=== PATIENT | male | born 1945 | race African-American/Black ===

== ENCOUNTER 2016-06-26 07:30 | Inpatient (IN) | payer MEDICARE ==
[~2016-06-26] VITALS: Ht 175.3 cm; Wt 89.4 kg
[~2016-06-26 07:30] MED LIST: AMLO10TA PO; CHLO25TA PO; K-TA1TAB PO; LOSA100T36 PO; SPIR25TA2 PO
[2016-07-30] MEDS ORDERED: ZOLO100T PO (10:32)
[2016-07-30] MEDS ORDERED: ASPI1TAB24 PO (10:32)
[2016-07-30] MEDS ORDERED: MINO10TAB PO (10:32)
[2016-07-30] MEDS ORDERED: METF500T PO (10:36)
[2016-07-30] MEDS ORDERED: FLOM5CAP PO (10:43)
[2016-08-07] MEDS ORDERED: fentaNYL 250 MCG/5 ML INJECTION (J3010) As Ordered ONE (09:20)
[2016-08-07] MEDS ORDERED: ROCURONIUM BROMIDE 50 MG/5 ML VIAL As Ordered ONE (09:20)
[2016-08-07] MEDS ORDERED: LIDOCAINE 2% INJ 100 MG/5 ML SDV (FOR ANES.) As Ordered ONE (09:20)
[2016-08-07] MEDS ORDERED: PROPOFOL 200 MG/20 ML VIAL As Ordered ONE (09:20)
[2016-08-07] MEDS ORDERED: MIDAZOLAM INJ 2 MG/2 ML VIAL (J2250) As Ordered ONE (09:20)
[2016-08-07] MEDS ORDERED: LR 1,000 ML IV SCH ×2 (10:00→16:30)
[2016-08-07] MEDS ORDERED: METHYLENE BLUE 1% 10 ML VIAL (Q9968) As Ordered ONE (11:31)
[2016-08-07] MEDS ORDERED: fentaNYL 100 MCG/2 ML INJECTION (J3010) IV PRN (16:30)
[2016-08-07] MEDS ORDERED: MORPHINE 2 MG/ML 1ML SYRINGE IV PRN (16:30)
[2016-08-07] MEDS ORDERED: MORPHINE 4 MG/ML 1ML SYRINGE IV PRN (16:30)
[2016-08-07] MEDS ORDERED: LABETALOL HCL 100 MG/20 ML VIAL IV SCH (16:30)
[2016-08-07] MEDS ORDERED: ONDANSETRON 4MG/2ML VIAL (J2405) IV PRN ×2 (16:30)
[2016-08-07 16:40] LABS: CALCIUM LEVEL 9.2 MG/DL (8.8-10.2); CREATININE FOR GFR 1.81 MG/DL (0.70-1.30); GLOMERULAR FILTRATION RATE 48.3 (>49)
[2016-08-07 17:13] LABS: MEAN CORPUSCULAR HEMOGLOBIN 29.2 pg (27.0-33.0); MEAN CORPUSCULAR HGB CONC 32.7 g/dl (32.0-36.5); MEAN CORPUSCULAR VOLUME 89.4 fl (80.0-96.0); RED CELL DISTRIBUTION WIDTH 12.8 % (11.5-14.5); WHITE BLOOD COUNT 9.6 K/mm3 (4.0-10.0)
[2016-08-07 17:45] VITALS: BP 153/77
[2016-08-07] MEDS: KCL 20MEQ IN D5/0.45NS 1000ML 1,000 ML IV SCH (18:00)
[2016-08-07] MEDS: PANTOPRAZOLE 40MG INJ (PROTONIX) (C9113) IV SCH (18:01)
[2016-08-07] MEDS: CIPROFLOXACIN 500 MG TAB PO SCH (18:05)
[2016-08-07] MEDS: ASPIRIN 81 MG CHEW TABLET PO SCH (18:07)
[2016-08-07 18:15] VITALS: BP 152/77
[2016-08-07] MEDS ORDERED: CHLO125TA PO (18:57)
[2016-08-07] MEDS: oxyCODONE 5MG TAB PO PRN (19:00)
[2016-08-07] MEDS ORDERED: SLF 3 ML SYR IV PRN (19:15)
[2016-08-07 19:56] VITALS: BP 159/79
[2016-08-07] MEDS ORDERED: LOSARTAN 50 MG TAB PO SCH (21:00)
[2016-08-08] MEDS: SLF 3 ML SYR IV SCH ×3 (00:36→13:47)
[2016-08-08] MEDS: ACETAMINOPHEN 650MG ER TAB (TYLENOL ARTHRITIS) PO SCH ×3 (00:36→13:47)
[2016-08-08 00:40] VITALS: BP 156/79
[2016-08-08 05:01] VITALS: BP 148/72
[2016-08-08] MEDS: CIPROFLOXACIN 500 MG TAB PO SCH ×2 (05:08→17:03)
[2016-08-08] MEDS: oxyCODONE 5MG TAB PO PRN ×2 (05:09→17:04)
[2016-08-08] MEDS: KCL 20MEQ IN D5/0.45NS 1000ML 1,000 ML IV SCH ×2 (05:09→12:00)
[2016-08-08 05:57] LABS: MEAN CORPUSCULAR HEMOGLOBIN 28.6 pg (27.0-33.0); MEAN CORPUSCULAR HGB CONC 31.9 g/dl (32.0-36.5); MEAN CORPUSCULAR VOLUME 89.6 fl (80.0-96.0); WHITE BLOOD COUNT 11.2 K/mm3 (4.0-10.0)
[2016-08-08 06:08] LABS: CALCIUM LEVEL 8.5 MG/DL (8.8-10.2); CREATININE FOR GFR 1.55 MG/DL (0.70-1.30); GLOMERULAR FILTRATION RATE 57.8 (>49); POTASSIUM SERUM 4.2 MEQ/L (3.5-5.1)
--- NOTE | 2016-08-08 06:53 | RO ---
DATE OF PROCEDURE: 08/07/2016 PREOPERATIVE DIAGNOSIS: Prostate cancer. POSTOPERATIVE DIAGNOSIS: Prostate cancer. SURGERY PERFORMED: Robotic-assisted radical prostatectomy. SURGEON: Dr. Marquez Carnes CURTAIN CLEANER: Maude Fiugeroa ANESTHESIA: General. ESTIMATED BLOOD LOSS: 150 mL. COMPLICATIONS: None. HISTORY OF PRESENT ILLNESS: 70-year-old male patient with acute urinary retention with a PSA of 48 and a prostate biopsy reporting a [place] score of 3+3 for a clinical stage cT1c N0 M0. The patient has consented for a robotic-assisted radical prostatectomy. He has received a Lupron shot 45 mg one shot only in [place]. He came here for surgery to [facility] with us. He has consented for robotic-assisted radical prostatectomy. PROCEDURE DESCRIPTION: In a patient under general anesthesia in supine modified low lithotomy position after prepping and draping the area of concern, which included the entire genitalia and abdomen, we started by putting a Hollingsworth catheter #16 [place] Islander to drain the bladder and inflated the balloon to 10 mL. An orogastric tube was also placed to drain the gastric content. We then performed an incision in the midline for about 2 cm in length, a vertical incision, infraumbilical. Through this incision, we opened the Retzius space and introduced the balloon SpaceMaker and inflated the balloon SpaceMaker to actively dissect the Retzius space. We then introduced a 12 mm balloon trocar through this and we insufflated the Retzius space with the CO2 at a maximum pressure of 15 at high flow. With the hand held robotic camera 10 mm, we actively placed the other trocars in a fan-shaped manner - 2 metallic trocars 8 mm in diameter on the left side by each other by 8 cm and 2 on the right side one 8 mm metallic trocar in the midclavicular line and another metallic trocar 8 cm away from the midclavicular line one in the anterior axillary line, and another 8 mm metallic trocar for a third arm. On the left side, in the midclavicular line, instead of a metallic trocar, we placed a VersaStep 12 mm diameter for doctor's assistant port. We then proceeded to place the patient in steep Trendelenburg position and docked the robot. On the left arm, we used monopolar scissors. On the right arm, we used monopolar PK and also a ProGrasp. We then proceeded to actively dissect the Retzius space further on and defat the prostate by taking out the periprostatic fat. We then proceeded to score the endopelvic fascia from base to apex and cut the puboprostatic ligament. At that moment in time, we switched to needle holders and actively placed a dorsal vein complex stitch times two using a CT1 needle and #0 Vicryl. We then proceeded to actively extract the needles and then changed the needle holders for monopolar scissors and PK and cut them through the bladder neck and opened the bladder. We identified the Hollingsworth catheter, deflated the balloon, and with the third arm we put into traction the prostate by pulling on the Hollingsworth catheter anteriorly. We then dissected the posterior bladder wall and then lanced posteriorly detrusor muscle. We then landed on the vas deferens bilaterally and also seminal vesicles. We dissected the vas deferens and cut them and with the third arm we tractioned the vas deferens anteriorly to put into traction both seminal vesicles. We dissected both seminal vesicles, ligating the seminal vesicle arteries. We then proceeded to grab the seminal vesicles and vas deferens with the third arm and pulled the traction anteriorly to actively pull into traction the posterior Denonvilliers fascia. We cut the posterior Denonvilliers fascia transversely and then dissected the rectum away from the prostatic gland from base to apex. We then proceeded to control the prostatic pedicles with extra large Hem-o-loks times two on the left side and times two on the right side. We then proceeded to mobilize the prostate gland completely up to the apex. We then proceeded to cut the dorsal vein complex and then cut the urethra. The prostate gland was a very large gland with a middle lobe. We placed the prostate gland into an Endo Catch bag. We then proceeded to actively do our posterior Denonvilliers reconstruction with a running stitch of #3-0 V-Loc in a running fashion. Once we did that, we reconstructed the bladder neck by putting two lateral stitches on the right side and two lateral stitches on the left side with V-Loc. We then proceeded to do our urethrovesical anastomosis, starting with a quill stitch #2-0 double needle absorbable stitches, starting at 6 o'clock outside-in in the bladder neck and inside-out in the urethra. We ran it 360 degrees around the clock and before closing the anastomosis we passed a #20 [place] Islander Hollingsworth catheter with a 2-way inflatable balloon to 20 mL. We then tied our knots and cut the needles and took the needles out of the body of the patient. We actively then removed the third arm and placed a round J-P #15 blade drain, placing it into the pelvis. We took all the instruments out and docked the robot and took all the trocars out. We took the specimen through the midline incision in an Endo Catch bag. We secured the drain with a #3-0 nylon to the skin. We closed the rectus fascia in the midline with a #2-0 Vicryl on a UR #6 needle in a running fashion. We closed the skin with #4-0 Monocryl subcuticular stitches. We covered the skin wounds with 4 x 4's and we placed Tegaderm on top of his incision. The J-P was placed to bulb suction. The Hollingsworth catheter was placed to gravity. PLAN: The patient will pass to recovery and then to the floor. Once he is tolerating a regular diet and ambulating very well, he will be discharged home. There were no complications during surgery. Prostate and seminal vesicles were sent for permanent pathology analysis.
[2016-08-08 07:30] VITALS: BP 148/78
[2016-08-08 08:31] VITALS: BP 148/78
[2016-08-08] MEDS: ASPIRIN 81 MG CHEW TABLET PO SCH (08:31)
[2016-08-08] MEDS ORDERED: amLODIPine 10 MG TAB PO SCH (09:00)
[2016-08-08] MEDS ORDERED: SPIRONOLACTONE 25 MG TAB PO SCH (09:00)
[2016-08-08 12:00] VITALS: BP 148/70
[2016-08-08 16:00] VITALS: BP 172/79
[2016-08-08] MEDS: PANTOPRAZOLE 40MG INJ (PROTONIX) (C9113) IV SCH (17:03)
[2016-08-08] MEDS ORDERED: PERCOCET PO (17:04)
[2016-08-08] MEDS ORDERED: CIPR500T3 PO (17:04)
--- NOTE | 2016-08-08 21:34 | DSES ---
DATE OF ADMISSION: 08/07/2016 DATE OF DISCHARGE: 08/08/2016 ADMISSION DIAGNOSIS: Prostate cancer. DISCHARGE DIAGNOSIS: Prostate cancer. ADMITTING SURGEON: Dr. Marquez Carnes DISCHARGE SURGEON: Dr. Marquez Carnes HISTORY OF PRESENT ILLNESS: This is a 70-year-old male patient, -Ind[place]ian man, with a history of prostate cancer, Eduar 6, PSA of 48. The patient had a Lupron shot due to the reason that he had prostate cancer and urinary retention. After one month on a Hollingsworth catheter, he actually was able to void. The patient consented for a robotic assisted radical prostatectomy and that was carried out on 08/07/2016. After this, he was admitted to the hospital. HOSPITALIZATION COURSE: The patient did very well. By postoperative day number 1, he was tolerating a regular diet. Ambulated very well with assistance. The Hollingsworth catheter was draining clear urine. His MARCUS output was only 20 mL in the last 24 hours. For this reason, he requested to go home, and we agreed upon this. He will go home with the following indications: He will return back to all of his home medications, in addition to that, he will take Ciprofloxacin 500 mg one tablet by mouth twice a day for ten days. He will have Percocet 5/325 mg one tablet by mouth every six hours as needed for pain. He cannot carry heavy weight, lifting about 20 pounds. He has to ambulate three times a day. He should have a regular diet. He may shower, no sits baths. Hollingsworth catheter will be to gravity. He will followup in 10 days for a voiding trial. There were no complications during surgery.
[2016-08-09] MEDS ORDERED: CHLORTHALIDONE 12.5MG PER 1/2 TABLET PO SCH (09:00)
== END 2016-08-08 18:04 | disposition home or self-care (01) | DRG 708 ==
LOC: M OR 08-07 09:39 → M PCU 08-07 17:40
PROVIDERS: ADMIT Urology; ATTEND Urology
PROC: 8E0W4CZ Robotic Assisted Procedure of Trunk Region, Percutaneous Endoscopic Approach (ICD-10-PCS; 2016-08-07)
PROC: 0VT04ZZ Resection of Prostate, Percutaneous Endoscopic Approach (ICD-10-PCS; principal; 2016-08-07 11:40)
DX: C61 Malignant neoplasm of prostate (principal)

== ENCOUNTER → 2016-08-03 | Outpatient (CLI) | payer MEDICARE ==
[~2016-08-03] MED LIST changes: +ASPI1TAB24 PO; +FLOM5CAP PO; +METF500T PO; +MINO10TAB PO; +ZOLO100T PO
[2016-08-03 12:33] LABS: MEAN CORPUSCULAR HEMOGLOBIN 29.5 pg (27.0-33.0); MEAN CORPUSCULAR HGB CONC 33.7 g/dl (32.0-36.5); MEAN CORPUSCULAR VOLUME 87.5 fl (80.0-96.0); RED CELL DISTRIBUTION WIDTH 12.7 % (11.5-14.5); WHITE BLOOD COUNT 8.1 K/mm3 (4.0-10.0)
[2016-08-03 12:45] LABS: INR 1.1
[2016-08-03 12:46] LABS: CALCIUM LEVEL 9.7 MG/DL (8.8-10.2); CREATININE FOR GFR 1.83 MG/DL (0.70-1.30); GLOMERULAR FILTRATION RATE 47.7 (>49); POTASSIUM SERUM 4.7 MEQ/L (3.5-5.1)
== END ==
LOC: M LAB 11:57
PROVIDERS: ATTEND Urology
DX: Z01.818 Encounter for other preprocedural examination (principal); C61 Malignant neoplasm of prostate; Z79.82 Long term (current) use of aspirin; Z79.84 Long term (current) use of oral hypoglycemic drugs; Z79.899 Other long term (current) drug therapy

== ENCOUNTER → 2016-08-04 | Outpatient (REF) | payer MEDICARE ==
[~2016-08-04] MED LIST changes: +CHLO125TA PO; +CIPR500T3 PO; +PERCOCET PO
== END ==
LOC: M LAB REF 11:28
PROVIDERS: ATTEND Urology
DX: C61 Malignant neoplasm of prostate (principal)

== ENCOUNTER → 2016-08-10 | Outpatient (REF) | payer MEDICARE ==
[2016-08-10 12:04] LABS: CALCIUM LEVEL 9.6 MG/DL (8.8-10.2); CREATININE FOR GFR 1.92 MG/DL (0.70-1.30); GLOMERULAR FILTRATION RATE 45.2 (>49); POTASSIUM SERUM 4.2 MEQ/L (3.5-5.1)
== END ==
LOC: M SFHCPLAZ 09:15
PROVIDERS: ATTEND Family Medicine
DX: N17.9 Acute kidney failure, unspecified (principal)
CPT/HCPCS: 36415; 80048; G0463

== ENCOUNTER 2016-08-14 08:16 | Emergency (ER) | payer MEDICARE ==
[2016-08-14 09:37] LABS: BASO % 0.6 % (0.0-1.0); EOS # 0.2 K/mm3 (0.0-0.50); EOS % 3.2 % (0.0-3.0); LARGE UNSTAINED CELL # 0.2 K/mm3 (0.0-0.4); LARGE UNSTAINED CELL % 2.4 % (0.0-4.0); LYMPH # 1.7 K/mm3 (1.5-4.5); LYMPH % 23.8 % (24.0-44.0); MEAN CORPUSCULAR HEMOGLOBIN 29.5 pg (27.0-33.0); MEAN CORPUSCULAR VOLUME 86.7 fl (80.0-96.0); MONO # 0.4 K/mm3 (0.0-0.8); MONO % 5.2 % (0.0-5.0); NEUTROPHILS # 4.6 K/mm3 (1.8-7.7); NEUTROPHILS % 64.9 % (36.0-66.0); PLATELET COUNT, AUTOMATED 271 k/mm3 (150-450); RED CELL DISTRIBUTION WIDTH 13.1 % (11.5-14.5); WHITE BLOOD COUNT 7.1 K/mm3 (4.0-10.0)
[2016-08-14 10:00] LABS: CALCIUM LEVEL 8.7 MG/DL (8.8-10.2); CREATININE FOR GFR 2.2 MG/DL (0.70-1.30); GLOMERULAR FILTRATION RATE 38.6 (>49); POTASSIUM SERUM 4.6 MEQ/L (3.5-5.1)
--- NOTE | 2016-08-14 10:52 | EDDOCDS ---
Physician Documentation [facility] Name: Jed Cardenas Age: 70 yrs Sex: Male : 1945 Arrival Date: 08/14/2016 Time: 08:16 Bed I7 Private MD: Prateek Noe M. Disposition: 08/14/16 10:42 Discharged to Home/Self Care. Impression: Acute pain, not elsewhere classified - in penis, likely from catheter. - Condition is Stable. - Discharge Instructions: Pelvic Pain, Male. - Prescriptions for LIDOCAINE HYDROCHLORIDE JELLY 2% - apply to affected area 1 application by TOPICAL route 2-3 times daily As needed APPLY SMALL AMOUNT TO URETHRAL MEATUS 2-3 TIMES DAILY FOR PAIN; 30 milliliter. - Medication Reconciliation, Local Pharmacy Hours form. - Follow up: Emergency Department; When: As needed; Reason: Worsening of conditions. Follow up: Prateek Noe; When: call the clinic today, per Dr. Noe, and he will schedule an appointment for you tomorrow; Reason: Recheck today's complaints, Continuance of care. - Problem is new. - Symptoms are unchanged. - Notes: DR. NOE WILL SEE YOU IN THE CLINIC TOMORROW. PLEASE CALL THE OFFICE TODAY TO SCHEDULE THAT APPOINTMENT FOR FOLLOW UP FROM TODAY'S VISIT. DO NOT TAKE YOUR LOSARTAN UNTIL YOU SEE DR. NOE TOMORROW. START TAKING YOUR MINOXIDIL 10MG TWICE A DAY. RETURN TO THE ER WITH ANY WORSENING SYMPTOMS. YOU MAY USE THE LIDOCAINE JELLY DIRECTED, APPLIED TO THE URETHRAL MEATUS (OPENING OF THE PENIS WITH THE CATHETER IS INSERTED) TO HELP WITH YOUR PAIN. Historical: - Allergies: no known allergies; - Home Meds: 1. minoxidil 10 mg Oral tab 1 tab once daily 2. spironolactone 50 mg Oral tab 1 tab once daily 3. Flomax 0.4 mg Oral cp24 1 cap once daily 4. nifedipine 30 mg Oral TbER 1 tab once daily 5. hydrochlorothiazide 50 mg Oral tab 1 tab once daily 6. clonidine HCl 0.1 mg Oral tab 1 tab nightly 7. clopidogrel 75 mg oral tab 1 tab once daily 8. potassium chloride 20 mEq Oral TbER 1 tab once daily 9. aspirin 81 mg Oral chew 1 tab once daily 10. metformin 500 mg Oral Tb24 2 times per day 11. Zoloft 50 mg Oral tab 1 tab once daily 12. chlorthalidone 25 mg Oral tab 0.5 tab once daily 13. losartan 100 mg oral tab 1 tab once daily 14. Cipro 500 mg Oral tab 1 tab every 12 hours 15. oxycodone-acetaminophen 5-325 mg Oral tab every 6 hours as needed - PMHx: Cancer, Prostate; Hypertension; Diabetes - NIDDM: controlled; memory disturbance; Depression; - PSHx: Prostatectomy; Cardiac stents; - Social history: Smoking status: Patient states was never smoker of tobacco. No barriers to communication noted, The patient speaks fluent Hungarian. - Family history: Not pertinent. - : The pt / caregiver states he / she is on anticoagulants: Plavix. Home medication list is obtained from family members, a discharge med list. - Exposure Risk Screening:: None identified. Vital Signs: 08/14 08:51 BP 162 / 68; Pulse 85; Resp 20; Temp 98.2; Pulse Ox 93% ; Weight 87.09 kg / 192 lbs; jam1 Height 5 ft. 5 in. (165.10 cm); Pain 04/30; 08:51 Body Mass Index 31.95 (87.09 kg, 165.10 cm) jam1 MDM: 09:25 CBC with Diff Ordered. EDMS 09:25 Basic Metabolic Profile Ordered. EDMS 10:09 Financial registration complete. mm15 10:18 [facility] Payment Agreement was scanned into [employer] and attached to record. mm15 Signatures: Dispatcher [employer] EDMS Leeann Ely RN RN mcp Robie, Kathleen, RN RN kr3 Jojo Bird RN RN js13 Tony Swanson mm15 Radha Andersen PA-C PA-C dt4 The chart was reviewed and I authenticate all verbal orders and agree with the evaluation and treatment provided.Attachments: 10:18 [facility] Payment Agreement mm15 MTDD
--- NOTE | 2016-08-14 10:52 | EDDOCDS ---
Nurse's Notes [facility] Name: Jed Cardenas Age: 70 yrs Sex: Male : 1945 Arrival Date: 08/14/2016 Time: 08:16 Bed I7 Private MD: Prateek Noe M. Diagnosis: Acute pain, not elsewhere classified-in penis, likely from catheter Presentation: 08/14 08:29 Presenting complaint: Patient states: pain at site of catheter. Catheter is draining kr3 daughter reports prostate removal 1 week ago and catheter in place since. Complaining of pain since last night. Adult Sepsis Screening: The patient does not have new or worsening altered mentation. Patient's respiratory rate is less than 22. Systolic blood pressure is greater than 100. Patient has a qSOFA score of 0- Negative Sepsis Screen. Suicide/Homicide risk assessment- the patient denies having any suicidal and/or homicidal ideations and does not present with any other emotional, behavioral or mental health complaints. Status: Patient is not a servicer travel trailers or dependent. Transition of care: patient was not received from another setting of care. 08:29 Acuity: MOHSEN Level 3 kr3 08:29 Method Of Arrival: Wheelchair kr3 Triage Assessment: 08:31 General: Appears in no apparent distress, comfortable, Behavior is cooperative. Pain: kr3 Location: site of catheter. Respiratory: Respiratory effort is even, unlabored. : Hollingsworth in place to gravity drainage Urine is clear. Derm: Skin is normal. Historical: - Allergies: no known allergies; - Home Meds: 1. minoxidil 10 mg Oral tab 1 tab once daily 2. spironolactone 50 mg Oral tab 1 tab once daily 3. Flomax 0.4 mg Oral cp24 1 cap once daily 4. nifedipine 30 mg Oral TbER 1 tab once daily 5. hydrochlorothiazide 50 mg Oral tab 1 tab once daily 6. clonidine HCl 0.1 mg Oral tab 1 tab nightly 7. clopidogrel 75 mg oral tab 1 tab once daily 8. potassium chloride 20 mEq Oral TbER 1 tab once daily 9. aspirin 81 mg Oral chew 1 tab once daily 10. metformin 500 mg Oral Tb24 2 times per day 11. Zoloft 50 mg Oral tab 1 tab once daily 12. chlorthalidone 25 mg Oral tab 0.5 tab once daily 13. losartan 100 mg oral tab 1 tab once daily 14. Cipro 500 mg Oral tab 1 tab every 12 hours 15. oxycodone-acetaminophen 5-325 mg Oral tab every 6 hours as needed - PMHx: Cancer, Prostate; Hypertension; Diabetes - NIDDM: controlled; memory disturbance; Depression; - PSHx: Prostatectomy; Cardiac stents; - Social history: Smoking status: Patient states was never smoker of tobacco. No barriers to communication noted, The patient speaks fluent Cymro. - Family history: Not pertinent. - : The pt / caregiver states he / she is on anticoagulants: Plavix. Home medication list is obtained from family members, a discharge med list. - Exposure Risk Screening:: None identified. Screenin:04 Screening information is obtained from the patient. Fall risk: No risks identified. js13 Assistance ADL's: requires no assistance with activities of daily living. Abuse/DV Screen: The patient / caregiver reports he/she is: not in a situation that causes fear, pain or injury. Nutritional screening: No deficits noted. Advance Directives: There is no active DNR order. home support is adequate. Assessment: 09:18 General: Appears in no apparent distress, Behavior is appropriate for age, cooperative. js13 Pain: Location: penile area. Neurological: Level of Consciousness is awake, alert. Respiratory: Airway is patent Respiratory effort is even, unlabored, Respiratory pattern is regular, symmetrical. : Hollingsworth in place to gravity drainage Urine is clear, Genitalia appear normal. Derm: Skin is normal. 10:46 General: Appears in no apparent distress, Behavior is appropriate for age, cooperative. [facility] Pain: Location: penile area. Neurological: Level of Consciousness is awake, alert. Respiratory: Airway is patent Respiratory effort is even, unlabored, Respiratory pattern is regular, symmetrical. : Hollingsworth in place to gravity drainage Urine is clear, Genitalia appear normal. Derm: Skin is normal. 10:46 Adult Sepsis Screening: The patient does not have new or worsening altered mentation. [facility] Patient's respiratory rate is less than 22. Systolic blood pressure is greater than 100. Patient has a qSOFA score of 0- Negative Sepsis Screen. Vital Signs: 08:51 BP 162 / 68; Pulse 85; Resp 20; Temp 98.2; Pulse Ox 93% ; Weight 87.09 kg; Height 5 ft. jam1 5 in. (165.10 cm); Pain 10/10; 08:51 Body Mass Index 31.95 (87.09 kg, 165.10 cm) [facility] ED Course: 08:17 Patient visited by Tony Swanson. mm15 08:17 Patient moved to Waiting mm15 08:18 Prateek Noe is Private Physician. mm15 08:30 Triage Initiated kr3 08:39 Patient moved to I7 kr3 09:04 The patient / caregiver is instructed regarding the plan of care and ED course. js13 09:04 No IV's were initiated during this patient's visit. No procedures done that require js13 assistance. 09:08 Radha Andersen PA-C is PHCP. dt4 09:08 Kelin Denis MD is Attending Physician. dt4 09:08 Patient visited by Radha Andersen PA-C. dt4 09:19 Patient visited by Jojo Bird RN. js13 10:18 [facility] [place] Payment Agreement was scanned into [employer] and attached to record. mm15 10:20 Patient visited by Radha Andersen PA-C. dt4 10:41 Prateek Noe is Referral Physician. dt4 Order Results: Lab Order: CBC with Diff; SPEC'M 08/14/16 09:30 Test: WHITE BLOOD COUNT; Value: 7.1; Range: 4.0-10.0; Units: K/mm3; Status: F Test: RED BLOOD COUNT; Value: 3.47; Range: 4.30-6.10; Abnormal: Below low normal; Units: M/mm3; Status: F Test: HEMOGLOBIN; Value: 10.2; Range: 14.0-18.0; Abnormal: Below low normal; Units: g/dl; Status: F Test: HEMATOCRIT; Value: 30.1; Range: 42.0-52.0; Abnormal: Below low normal; Units: %; Status: F Test: MEAN CORPUSCULAR VOLUME; Value: 86.7; Range: 80.0-96.0; Units: fl; Status: F Test: MEAN CORPUSCULAR HEMOGLOBIN; Value: 29.5; Range: 27.0-33.0; Units: pg; Status: F Test: MEAN CORPUSCULAR HGB CONC; Value: 34.0; Range: 32.0-36.5; Units: g/dl; Status: F Test: RED CELL DISTRIBUTION WIDTH; Value: 13.1; Range: 11.5-14.5; Units: %; Status: F Test: PLATELET COUNT, AUTOMATED; Value: 271; Range: 150-450; Units: k/mm3; Status: F Test: NEUTROPHILS %; Value: 64.9; Range: 36.0-66.0; Units: %; Status: F Test: LYMPH %; Value: 23.8; Range: 24.0-44.0; Abnormal: Below low normal; Units: %; Status: F Test: MONO %; Value: 5.2; Range: 0.0-5.0; Abnormal: Above high normal; Units: %; Status: F Test: EOS %; Value: 3.2; Range: 0.0-3.0; Abnormal: Above high normal; Units: %; Status: F Test: BASO %; Value: 0.6; Range: 0.0-1.0; Units: %; Status: F Test: LARGE UNSTAINED CELL %; Value: 2.4; Range: 0.0-4.0; Units: %; Status: F Test: NEUTROPHILS #; Value: 4.6; Range: 1.8-7.7; Units: K/mm3; Status: F Test: LYMPH #; Value: 1.7; Range: 1.5-4.5; Units: K/mm3; Status: F Test: MONO #; Value: 0.4; Range: 0.0-0.8; Units: K/mm3; Status: F Test: EOS #; Value: 0.2; Range: 0.0-0.50; Units: K/mm3; Status: F Test: BASO #; Value: 0.0; Range: 0.0-0.2; Units: K/mm3; Status: F Test: LARGE UNSTAINED CELL #; Value: 0.2; Range: 0.0-0.4; Units: K/mm3; Status: F Lab Order: Basic Metabolic Profile; SPEC'M 08/14/16 09:30 Test: GLUCOSE, FASTING; Value: 139; Range: 80-110; Abnormal: Above high normal; Units: MG/DL; Status: F Test: BLOOD UREA NITROGEN; Value: 55; Range: 7-18; Abnormal: Above high normal; Units: MG/DL; Status: F Test: CREATININE FOR GFR; Value: 2.20; Range: 0.70-1.30; Abnormal: Above high normal; Units: MG/DL; Status: F Test: GLOMERULAR FILTRATION RATE; Value: 38.6; Range: >49; Abnormal: Below low normal; Status: F Test: SODIUM LEVEL; Value: 141; Range: 136-145; Units: MEQ/L; Status: F Test: POTASSIUM SERUM; Value: 4.6; Range: 3.5-5.1; Units: MEQ/L; Status: F Test: CHLORIDE LEVEL; Value: 109; Range: 98-107; Abnormal: Above high normal; Units: MEQ/L; Status: F Test: CARBON DIOXIDE LEVEL; Value: 22; Range: 21-32; Units: MEQ/L; Status: F Test: ANION GAP; Value: 10; Range: 8-16; Units: MEQ/L; Status: F Test: CALCIUM LEVEL; Value: 8.7; Range: 8.8-10.2; Abnormal: Below low normal; Units: MG/DL; Status: F Test Note: ; Units are mL/min/1.73 m2 Chronic Kidney Disease Staging per NKF: Stage I & II GFR >=60 Normal to Mildly Decreased Stage III GFR 30-59 Moderately Decreased Stage IV GFR 15-29 Severely Decreased Stage V GFR <15 Very Little GFR Left ESRD GFR <15 on CONTROL INSPECTOR Outcome: 10:42 Discharge ordered by Provider. dt4 10:46 Discharge Assessment: Patient awake, alert and oriented x 3. No cognitive and/or mcp functional deficits noted. Patient verbalized understanding of disposition instructions. patient administered narcotics - no. The following High Risk Discharge criteria are identified: None. Discharged to home ambulatory, with family. Condition: stable. Discharge instructions given to patient, family, Instructed on discharge instructions, follow up and referral plans. medication usage, Demonstrated understanding of instructions, medications, Pt was receptive of discharge instructions/ teaching. Prescriptions given X 1. No special radiology studies were completed. Property :Personal belongings accompany Pt. 10:51 Patient left the ED. mcp Signatures: Leeann Ely RN RN Gretel Rdz, CANDIDO SHORE MAN jam1 Eva Gipson RN RN kr3 Jojo Bird,RN RN js13 Tony Swanson mm15 Radha Andersen, DONNA THOMPSON dt4 MTDD
--- NOTE | 2016-08-16 11:51 | EDDOCDS ---
Physician Documentation [facility] Name: Jed Cardenas Age: 70 yrs Sex: Male : 1945 Arrival Date: 08/14/2016 Time: 08:16 Bed I7 Private MD: Prateek Noe M. Disposition: 08/14/16 10:42 Discharged to Home/Self Care. Impression: Acute pain, not elsewhere classified - in penis, likely from catheter. - Condition is Stable. - Discharge Instructions: Pelvic Pain, Male. - Prescriptions for LIDOCAINE HYDROCHLORIDE JELLY 2% - apply to affected area 1 application by TOPICAL route 2-3 times daily As needed APPLY SMALL AMOUNT TO URETHRAL MEATUS 2-3 TIMES DAILY FOR PAIN; 30 milliliter. - Medication Reconciliation, Local Pharmacy Hours form. - Follow up: Emergency Department; When: As needed; Reason: Worsening of conditions. Follow up: Prateek Noe; When: call the clinic today, per Dr. Noe, and he will schedule an appointment for you tomorrow; Reason: Recheck today's complaints, Continuance of care. - Problem is new. - Symptoms are unchanged. - Notes: DR. NOE WILL SEE YOU IN THE CLINIC TOMORROW. PLEASE CALL THE OFFICE TODAY TO SCHEDULE THAT APPOINTMENT FOR FOLLOW UP FROM TODAY'S VISIT. DO NOT TAKE YOUR LOSARTAN UNTIL YOU SEE DR. NOE TOMORROW. START TAKING YOUR MINOXIDIL 10MG TWICE A DAY. RETURN TO THE ER WITH ANY WORSENING SYMPTOMS. YOU MAY USE THE LIDOCAINE JELLY DIRECTED, APPLIED TO THE URETHRAL MEATUS (OPENING OF THE PENIS WITH THE CATHETER IS INSERTED) TO HELP WITH YOUR PAIN. Historical: - Allergies: no known allergies; - Home Meds: 1. minoxidil 10 mg Oral tab 1 tab once daily 2. spironolactone 50 mg Oral tab 1 tab once daily 3. Flomax 0.4 mg Oral cp24 1 cap once daily 4. nifedipine 30 mg Oral TbER 1 tab once daily 5. hydrochlorothiazide 50 mg Oral tab 1 tab once daily 6. clonidine HCl 0.1 mg Oral tab 1 tab nightly 7. clopidogrel 75 mg oral tab 1 tab once daily 8. potassium chloride 20 mEq Oral TbER 1 tab once daily 9. aspirin 81 mg Oral chew 1 tab once daily 10. metformin 500 mg Oral Tb24 2 times per day 11. Zoloft 50 mg Oral tab 1 tab once daily 12. chlorthalidone 25 mg Oral tab 0.5 tab once daily 13. losartan 100 mg oral tab 1 tab once daily 14. Cipro 500 mg Oral tab 1 tab every 12 hours 15. oxycodone-acetaminophen 5-325 mg Oral tab every 6 hours as needed - PMHx: Cancer, Prostate; Hypertension; Diabetes - NIDDM: controlled; memory disturbance; Depression; - PSHx: Prostatectomy; Cardiac stents; - Social history: Smoking status: Patient states was never smoker of tobacco. No barriers to communication noted, The patient speaks fluent Danish. - Family history: Not pertinent. - : The pt / caregiver states he / she is on anticoagulants: Plavix. Home medication list is obtained from family members, a discharge med list. - Exposure Risk Screening:: None identified. Vital Signs: 08/14 08:51 BP 162 / 68; Pulse 85; Resp 20; Temp 98.2; Pulse Ox 93% ; Weight 87.09 kg / 192 lbs; jam1 Height 5 ft. 5 in. (165.10 cm); Pain 10; 08:51 Body Mass Index 31.95 (87.09 kg, 165.10 cm) jam1 MDM: 09:25 CBC with Diff Ordered. EDMS 09:25 Basic Metabolic Profile Ordered. EDMS 10:09 Financial registration complete. mm15 [facility] Payment Agreement was scanned into [employer] and attached to record. mm15 08/15 03:45 T-Sheet-- Draft Copy was scanned into [employer] and attached to record. hs2 Signatures: Dispatcher [employer] EDGA Leeann Ely RN RN mcp Robie, Kathleen, RN RN kr3 Jojo Bird RN RN js13 Tony Swanson mm15 Radha Andersen PA-C PARashad dt4 Corry Bergman, Reg Reg hs2 The chart was reviewed and I authenticate all verbal orders and agree with the evaluation and treatment provided.Attachments: 08/14 10: [facility] Payment Agreement mm15 08/15 03:45 T-Sheet-- Draft Copy hs2 Chart Complete MTDD
--- NOTE | 2016-08-16 11:51 | EDDOCDS ---
Physician Documentation [facility] Name: Jed Cardenas Age: 70 yrs Sex: Male : 1945 Arrival Date: 08/14/2016 Time: 08:16 Bed I7 Private MD: Prateek Noe M. Disposition: 08/14/16 10:42 Discharged to Home/Self Care. Impression: Acute pain, not elsewhere classified - in penis, likely from catheter. - Condition is Stable. - Discharge Instructions: Pelvic Pain, Male. - Prescriptions for LIDOCAINE HYDROCHLORIDE JELLY 2% - apply to affected area 1 application by TOPICAL route 2-3 times daily As needed APPLY SMALL AMOUNT TO URETHRAL MEATUS 2-3 TIMES DAILY FOR PAIN; 30 milliliter. - Medication Reconciliation, Local Pharmacy Hours form. - Follow up: Emergency Department; When: As needed; Reason: Worsening of conditions. Follow up: Prateek Noe; When: call the clinic today, per Dr. Noe, and he will schedule an appointment for you tomorrow; Reason: Recheck today's complaints, Continuance of care. - Problem is new. - Symptoms are unchanged. - Notes: DR. NOE WILL SEE YOU IN THE CLINIC TOMORROW. PLEASE CALL THE OFFICE TODAY TO SCHEDULE THAT APPOINTMENT FOR FOLLOW UP FROM TODAY'S VISIT. DO NOT TAKE YOUR LOSARTAN UNTIL YOU SEE DR. NEO TOMORROW. START TAKING YOUR MINOXIDIL 10MG TWICE A DAY. RETURN TO THE ER WITH ANY WORSENING SYMPTOMS. YOU MAY USE THE LIDOCAINE JELLY DIRECTED, APPLIED TO THE URETHRAL MEATUS (OPENING OF THE PENIS WITH THE CATHETER IS INSERTED) TO HELP WITH YOUR PAIN. Historical: - Allergies: no known allergies; - Home Meds: 1. minoxidil 10 mg Oral tab 1 tab once daily 2. spironolactone 50 mg Oral tab 1 tab once daily 3. Flomax 0.4 mg Oral cp24 1 cap once daily 4. nifedipine 30 mg Oral TbER 1 tab once daily 5. hydrochlorothiazide 50 mg Oral tab 1 tab once daily 6. clonidine HCl 0.1 mg Oral tab 1 tab nightly 7. clopidogrel 75 mg oral tab 1 tab once daily 8. potassium chloride 20 mEq Oral TbER 1 tab once daily 9. aspirin 81 mg Oral chew 1 tab once daily 10. metformin 500 mg Oral Tb24 2 times per day 11. Zoloft 50 mg Oral tab 1 tab once daily 12. chlorthalidone 25 mg Oral tab 0.5 tab once daily 13. losartan 100 mg oral tab 1 tab once daily 14. Cipro 500 mg Oral tab 1 tab every 12 hours 15. oxycodone-acetaminophen 5-325 mg Oral tab every 6 hours as needed - PMHx: Cancer, Prostate; Hypertension; Diabetes - NIDDM: controlled; memory disturbance; Depression; - PSHx: Prostatectomy; Cardiac stents; - Social history: Smoking status: Patient states was never smoker of tobacco. No barriers to communication noted, The patient speaks fluent Azeri. - Family history: Not pertinent. - : The pt / caregiver states he / she is on anticoagulants: Plavix. Home medication list is obtained from family members, a discharge med list. - Exposure Risk Screening:: None identified. Vital Signs: 08/14 08:51 BP 162 / 68; Pulse 85; Resp 20; Temp 98.2; Pulse Ox 93% ; Weight 87.09 kg / 192 lbs; jam1 Height 5 ft. 5 in. (165.10 cm); Pain 10; 08:51 Body Mass Index 31.95 (87.09 kg, 165.10 cm) jam1 MDM: 09:25 CBC with Diff Ordered. EDMS 09:25 Basic Metabolic Profile Ordered. EDMS 10:09 Financial registration complete. mm15 [facility] Payment Agreement was scanned into [employer] and attached to record. mm15 08/15 03:45 T-Sheet-- Draft Copy was scanned into [employer] and attached to record. hs2 Signatures: Dispatcher [employer] EDSC Leeann Ely RN RN mcp Robie, Kathleen, RN RN kr3 Jojo iBrd RN RN js13 Tony Swanson mm15 Radha Andersen PA-C PARashad dt4 Corry Bergman, Reg Reg hs2 The chart was reviewed and I authenticate all verbal orders and agree with the evaluation and treatment provided.Attachments: 08/14 10: [facility] Payment Agreement mm15 08/15 03:45 T-Sheet-- Draft Copy hs2 Chart Complete MTDD
--- NOTE | 2016-08-16 11:51 | EDDOCDS ---
Nurse's Notes [facility] Name: Jed Cardenas Age: 70 yrs Sex: Male : 1945 Arrival Date: 08/14/2016 Time: 08:16 Bed I7 Private MD: Prateek Noe M. Diagnosis: Acute pain, not elsewhere classified-in penis, likely from catheter Presentation: 08/14 08:29 Presenting complaint: Patient states: pain at site of catheter. Catheter is draining kr3 daughter reports prostate removal 1 week ago and catheter in place since. Complaining of pain since last night. Adult Sepsis Screening: The patient does not have new or worsening altered mentation. Patient's respiratory rate is less than 22. Systolic blood pressure is greater than 100. Patient has a qSOFA score of 0- Negative Sepsis Screen. Suicide/Homicide risk assessment- the patient denies having any suicidal and/or homicidal ideations and does not present with any other emotional, behavioral or mental health complaints. Status: Patient is not a direct service provider or dependent. Transition of care: patient was not received from another setting of care. 08:29 Acuity: MOHSEN Level 3 kr3 08:29 Method Of Arrival: Wheelchair kr3 Triage Assessment: 08:31 General: Appears in no apparent distress, comfortable, Behavior is cooperative. Pain: kr3 Location: site of catheter. Respiratory: Respiratory effort is even, unlabored. : Hollingsworth in place to gravity drainage Urine is clear. Derm: Skin is normal. Historical: - Allergies: no known allergies; - Home Meds: 1. minoxidil 10 mg Oral tab 1 tab once daily 2. spironolactone 50 mg Oral tab 1 tab once daily 3. Flomax 0.4 mg Oral cp24 1 cap once daily 4. nifedipine 30 mg Oral TbER 1 tab once daily 5. hydrochlorothiazide 50 mg Oral tab 1 tab once daily 6. clonidine HCl 0.1 mg Oral tab 1 tab nightly 7. clopidogrel 75 mg oral tab 1 tab once daily 8. potassium chloride 20 mEq Oral TbER 1 tab once daily 9. aspirin 81 mg Oral chew 1 tab once daily 10. metformin 500 mg Oral Tb24 2 times per day 11. Zoloft 50 mg Oral tab 1 tab once daily 12. chlorthalidone 25 mg Oral tab 0.5 tab once daily 13. losartan 100 mg oral tab 1 tab once daily 14. Cipro 500 mg Oral tab 1 tab every 12 hours 15. oxycodone-acetaminophen 5-325 mg Oral tab every 6 hours as needed - PMHx: Cancer, Prostate; Hypertension; Diabetes - NIDDM: controlled; memory disturbance; Depression; - PSHx: Prostatectomy; Cardiac stents; - Social history: Smoking status: Patient states was never smoker of tobacco. No barriers to communication noted, The patient speaks fluent Zambian. - Family history: Not pertinent. - : The pt / caregiver states he / she is on anticoagulants: Plavix. Home medication list is obtained from family members, a discharge med list. - Exposure Risk Screening:: None identified. Screenin:04 Screening information is obtained from the patient. Fall risk: No risks identified. js13 Assistance ADL's: requires no assistance with activities of daily living. Abuse/DV Screen: The patient / caregiver reports he/she is: not in a situation that causes fear, pain or injury. Nutritional screening: No deficits noted. Advance Directives: There is no active DNR order. home support is adequate. Assessment: 09:18 General: Appears in no apparent distress, Behavior is appropriate for age, cooperative. js13 Pain: Location: penile area. Neurological: Level of Consciousness is awake, alert. Respiratory: Airway is patent Respiratory effort is even, unlabored, Respiratory pattern is regular, symmetrical. : Hollingsworth in place to gravity drainage Urine is clear, Genitalia appear normal. Derm: Skin is normal. 10:46 General: Appears in no apparent distress, Behavior is appropriate for age, cooperative. [facility] Pain: Location: penile area. Neurological: Level of Consciousness is awake, alert. Respiratory: Airway is patent Respiratory effort is even, unlabored, Respiratory pattern is regular, symmetrical. : Hollingsworth in place to gravity drainage Urine is clear, Genitalia appear normal. Derm: Skin is normal. 10:46 Adult Sepsis Screening: The patient does not have new or worsening altered mentation. [facility] Patient's respiratory rate is less than 22. Systolic blood pressure is greater than 100. Patient has a qSOFA score of 0- Negative Sepsis Screen. Vital Signs: 08:51 BP 162 / 68; Pulse 85; Resp 20; Temp 98.2; Pulse Ox 93% ; Weight 87.09 kg; Height 5 ft. jam1 5 in. (165.10 cm); Pain 10/10; 08:51 Body Mass Index 31.95 (87.09 kg, 165.10 cm) [facility] ED Course: 08:17 Patient visited by Tony Swanson. mm15 08:17 Patient moved to Waiting mm15 08:18 Prateek Noe is Private Physician. mm15 08:30 Triage Initiated kr3 08:39 Patient moved to I kr3 09:04 The patient / caregiver is instructed regarding the plan of care and ED course. js13 09:04 No IV's were initiated during this patient's visit. No procedures done that require js13 assistance. 09:08 Radha Andersen PA-C is PHCP. dt4 09:08 Kelin Denis MD is Attending Physician. dt4 09:08 Patient visited by Radha Andersen PA-C. dt4 09:19 Patient visited by Jojo Bird RN. js13 10:18 [facility] Payment Agreement was scanned into [employer] and attached to record. mm15 10:20 Patient visited by Radha Andersen PA-C. dt4 10:41 Prateek Noe is Referral Physician. dt4 08/15 03:45 T-Sheet-- Draft Copy was scanned into [employer] and attached to record. hs2 Order Results: Lab Order: CBC with Diff; SPEC'M 08/14/16 09:30 Test: WHITE BLOOD COUNT; Value: 7.1; Range: 4.0-10.0; Units: K/mm3; Status: F Test: RED BLOOD COUNT; Value: 3.47; Range: 4.30-6.10; Abnormal: Below low normal; Units: M/mm3; Status: F Test: HEMOGLOBIN; Value: 10.2; Range: 14.0-18.0; Abnormal: Below low normal; Units: g/dl; Status: F Test: HEMATOCRIT; Value: 30.1; Range: 42.0-52.0; Abnormal: Below low normal; Units: %; Status: F Test: MEAN CORPUSCULAR VOLUME; Value: 86.7; Range: 80.0-96.0; Units: fl; Status: F Test: MEAN CORPUSCULAR HEMOGLOBIN; Value: 29.5; Range: 27.0-33.0; Units: pg; Status: F Test: MEAN CORPUSCULAR HGB CONC; Value: 34.0; Range: 32.0-36.5; Units: g/dl; Status: F Test: RED CELL DISTRIBUTION WIDTH; Value: 13.1; Range: 11.5-14.5; Units: %; Status: F Test: PLATELET COUNT, AUTOMATED; Value: 271; Range: 150-450; Units: k/mm3; Status: F Test: NEUTROPHILS %; Value: 64.9; Range: 36.0-66.0; Units: %; Status: F Test: LYMPH %; Value: 23.8; Range: 24.0-44.0; Abnormal: Below low normal; Units: %; Status: F Test: MONO %; Value: 5.2; Range: 0.0-5.0; Abnormal: Above high normal; Units: %; Status: F Test: EOS %; Value: 3.2; Range: 0.0-3.0; Abnormal: Above high normal; Units: %; Status: F Test: BASO %; Value: 0.6; Range: 0.0-1.0; Units: %; Status: F Test: LARGE UNSTAINED CELL %; Value: 2.4; Range: 0.0-4.0; Units: %; Status: F Test: NEUTROPHILS #; Value: 4.6; Range: 1.8-7.7; Units: K/mm3; Status: F Test: LYMPH #; Value: 1.7; Range: 1.5-4.5; Units: K/mm3; Status: F Test: MONO #; Value: 0.4; Range: 0.0-0.8; Units: K/mm3; Status: F Test: EOS #; Value: 0.2; Range: 0.0-0.50; Units: K/mm3; Status: F Test: BASO #; Value: 0.0; Range: 0.0-0.2; Units: K/mm3; Status: F Test: LARGE UNSTAINED CELL #; Value: 0.2; Range: 0.0-0.4; Units: K/mm3; Status: F Lab Order: Basic Metabolic Profile; SPEC'M 08/14/16 09:30 Test: GLUCOSE, FASTING; Value: 139; Range: 80-110; Abnormal: Above high normal; Units: MG/DL; Status: F Test: BLOOD UREA NITROGEN; Value: 55; Range: 7-18; Abnormal: Above high normal; Units: MG/DL; Status: F Test: CREATININE FOR GFR; Value: 2.20; Range: 0.70-1.30; Abnormal: Above high normal; Units: MG/DL; Status: F Test: GLOMERULAR FILTRATION RATE; Value: 38.6; Range: >49; Abnormal: Below low normal; Status: F Test: SODIUM LEVEL; Value: 141; Range: 136-145; Units: MEQ/L; Status: F Test: POTASSIUM SERUM; Value: 4.6; Range: 3.5-5.1; Units: MEQ/L; Status: F Test: CHLORIDE LEVEL; Value: 109; Range: 98-107; Abnormal: Above high normal; Units: MEQ/L; Status: F Test: CARBON DIOXIDE LEVEL; Value: 22; Range: 21-32; Units: MEQ/L; Status: F Test: ANION GAP; Value: 10; Range: 8-16; Units: MEQ/L; Status: F Test: CALCIUM LEVEL; Value: 8.7; Range: 8.8-10.2; Abnormal: Below low normal; Units: MG/DL; Status: F Test Note: ; Units are mL/min/1.73 m2 Chronic Kidney Disease Staging per NKF: Stage I & II GFR >=60 Normal to Mildly Decreased Stage III GFR 30-59 Moderately Decreased Stage IV GFR 15-29 Severely Decreased Stage V GFR <15 Very Little GFR Left ESRD GFR <15 on OFFSET PRESS OPERATOR APPRENTICE Outcome: 08/14 10:42 Discharge ordered by Provider. dt4 10:46 Discharge Assessment: Patient awake, alert and oriented x 3. No cognitive and/or mcp functional deficits noted. Patient verbalized understanding of disposition instructions. patient administered narcotics - no. The following High Risk Discharge criteria are identified: None. Discharged to home ambulatory, with family. Condition: stable. Discharge instructions given to patient, family, Instructed on discharge instructions, follow up and referral plans. medication usage, Demonstrated understanding of instructions, medications, Pt was receptive of discharge instructions/ teaching. Prescriptions given X 1. No special radiology studies were completed. Property :Personal belongings accompany Pt. 10:51 Patient left the ED. [facility] Signatures: Leeann Ely RN RN lacey Ochoa Gretel, MOTOR MAN MOTOR MAN jam1 Eva Gipson,RN RN kr3 Jojo BirdRN RN js13 Tony Swanson mm15 Radha Andersen PA-C PA-C dt4 Corry Bergman, Reg Reg hs2 Chart Complete MTDD
== END 2016-08-14 10:51 | disposition home or self-care (01) ==
LOC: M ED 08:16
DX: N50.9 Disorder of male genital organs, unspecified (principal); I10 Essential (primary) hypertension; E11.9 Type 2 diabetes mellitus without complications; F32.9 Major depressive disorder, single episode, unspecified; Z85.46 Personal history of malignant neoplasm of prostate; R41.3 Other amnesia; Z95.5 Presence of coronary angioplasty implant and graft; Z79.899 Other long term (current) drug therapy; Z79.82 Long term (current) use of aspirin; Z79.84 Long term (current) use of oral hypoglycemic drugs

== ENCOUNTER → 2016-08-15 | Outpatient (REF) | payer MEDICARE ==
[2016-08-15 15:55] LABS: CREATININE FOR GFR 2.19 MG/DL (0.70-1.30); GLOMERULAR FILTRATION RATE 38.8 (>49)
== END ==
LOC: M SFHCPLAZ 12:54
PROVIDERS: ATTEND Family Medicine
DX: N17.9 Acute kidney failure, unspecified (principal)
CPT/HCPCS: 36415; 80048; 81002; G0463

== ENCOUNTER → 2016-08-24 | Outpatient (REF) | payer MEDICARE ==
[2016-08-24 12:19] LABS: CALCIUM LEVEL 8.4 MG/DL (8.8-10.2); CREATININE FOR GFR 1.63 MG/DL (0.70-1.30); GLOMERULAR FILTRATION RATE 54.6 (>49); POTASSIUM SERUM 4.1 MEQ/L (3.5-5.1)
== END ==
LOC: M SFHCPLAZ 10:32
PROVIDERS: ATTEND Family Medicine
DX: R89.9 Unspecified abnormal finding in specimens from other organs, systems and tissues (principal); C61 Malignant neoplasm of prostate
CPT/HCPCS: 36415; 80048; 84153; G0463